=== PATIENT | female | born 1975 | race Asian ===

== ENCOUNTER 2019-09-20 12:17 | Emergency (ER) | payer BC ==
[~2019-09-20] VITALS: Ht 175.3 cm; Wt 71.7 kg
[2019-09-20 12:47] VITALS: BP 119/83; Ht 175.3 cm; Wt 71.7 kg
== END 2019-09-20 13:39 | disposition home or self-care (01) ==
LOC: ED 12:17
DX: S06.0X0A Concussion without loss of consciousness, initial encounter (principal); V49.9XXA Car occupant (driver) (passenger) injured in unspecified traffic accident, initial encounter; Y93.89 Activity, other specified; Y92.488 Other paved roadways as the place of occurrence of the external cause; Y99.8 Other external cause status